=== PATIENT | female | born 1965 | race Caucasian/White ===

== ENCOUNTER 2017-05-18 09:31 | Emergency (ER) | payer MEDICAID, OTHER ==
[~2017-05-18] VITALS: Ht 170.2 cm; Wt 108.2 kg
[~2017-05-18 09:31] MED LIST: DIOV80TA2 PO; HYDR10TA16 PO; TOPR25TA2 PO; XANA1TAB6 PO
[2017-05-18 09:35] VITALS: BP 197/117; PULSE 109; RESP 26; TEMP 98.9; O2SAT 97
[2017-05-18] MEDS ORDERED: DIOV80TA2 PO ×2 (09:55→15:08)
[2017-05-18] MEDS ORDERED: DEPA250T2 PO (09:55)
[2017-05-18] MEDS ORDERED: CLON0.2T PO ×2 (09:55→15:08)
[2017-05-18] MEDS ORDERED: SERO400T PO (09:55)
[2017-05-18] MEDS ORDERED: TRAZ1TAB14 PO (09:55)
[2017-05-18] MEDS ORDERED: inhaler (09:55)
[2017-05-18] MEDS ORDERED: XANA1TAB2 PO (09:55)
[2017-05-18] MEDS ORDERED: OMEP40CA2 PO (09:56)
[2017-05-18 10:00] VITALS: BP 245/136; PULSE 105; RESP 18; TEMP 98.4; O2SAT 96
[2017-05-18 10:05] VITALS: BP_SYST 228; BP_SYST 245; BP_DIAS 136; BP_DIAS 88; PULSE 100; PULSE 105; RESP 16; RESP 18; O2SAT 98; O2SAT 99
[2017-05-18] MEDS ORDERED: ASPIRIN 81 MG CHEW TAB PO ONE (10:15)
[2017-05-18] MEDS ORDERED: VALSARTAN 80 MG TAB PO ONE (10:15)
[2017-05-18] MEDS ORDERED: cloNIDine HCL 0.2 MG TAB PO ONE (10:15)
[2017-05-18] MEDS ORDERED: SODIUM CHLORIDE 0.9% FLUSH 10 ML FLUSH IVF PRN (10:15)
[2017-05-18] MEDS ORDERED: ALPRAZolam 1 MG TAB PO ONE (10:15)
[2017-05-18 10:51] LABS: AUTOMATED NEUTROPHIL # 7.1 TH/MM3 (1.8-7.7); BASOPHIL # 0.1 TH/MM3 (0-0.2); BASOPHIL % 0.8 % (0.0-2.0); EOSINOPHIL # 0.1 TH/MM3 (0-0.4); EOSINOPHIL % 1.3 % (0.0-4.0); HEMATOCRIT 44.2 % (35.0-46.0); HEMO FLAGS DIFF FINAL; LYMPH % 19.5 % (9.0-44.0); LYMPHOCYTE # 1.9 TH/MM3 (1.0-4.8); MEAN CELL VOLUME 88.7 FL (80.0-100.0); MEAN CORPUSCULAR HGB CONC 32.7 % (32.0-36.0); MONO % 6.5 % (0.0-8.0); NEUT % 71.9 % (16.0-70.0); PLATELET COUNT 218 TH/MM3 (150-450); RED BLOOD COUNT 4.98 MIL/MM3 (4.00-5.30); RED CELL DISTRIBUTION WIDTH 16.4 % (11.6-17.2); WHITE BLOOD COUNT 9.9 TH/MM3 (4.0-11.0)
[2017-05-18 11:03] LABS: APTT (PATIENT) 26.5 SEC (24.3-30.1); INTERNATIONAL NORMALIZED RATIO 0.9 RATIO; PROTHROMBIN TIME - PATIENT 10.4 SEC (9.8-11.6)
[2017-05-18 11:22] LABS: ALKALINE PHOSPHATASE 87 U/L (45-117); ALT (GPT) 40 U/L (10-53); ANION GAP 10 MEQ/L (5-15); AST (GOT) 25 U/L (15-37); BICARBONATE 22.2 MEQ/L (21.0-32.0); BLOOD UREA NITROGEN 8 MG/DL (7-18); CHLORIDE 106 MEQ/L (98-107); GLOMERULAR FILTRATION RATE 74 ML/MIN (>89); POTASSIUM 3.7 MEQ/L (3.5-5.1); SODIUM (NA) 138 MEQ/L (136-145); TOTAL BILIRUBIN ADULT 0.3 MG/DL (0.2-1.0)
--- NOTE | 2017-05-18 11:23 | RADRPT ---
EXAM DATE/TIME: 05/18/2017 10:35 [facility] COMPARISON: CHEST PA & LAT, September 01, 2011, 13:51. INDICATIONS : Short of breath, chest pain earlier today but not at present, smoker MEDICAL HISTORY : Chronic obstructive pulmonary disease. SURGICAL HISTORY : None. ENCOUNTER: Initial ACUITY: 1 day PAIN SCORE: 0/10 LOCATION: Bilateral chest FINDINGS: A single view of the chest demonstrates the lungs to be symmetrically aerated without evidence of mas s, infiltrate or effusion. The cardiomediastinal contours are unremarkable. Osseous structures are intact. Old right posterior third and fourth rib fractures. CONCLUSION: No acute disease. Joel Diaz Jr., MD on May 18, 2017 at 11:21 Board Certified Radiologist. This report was verified electronically.
[2017-05-18 11:31] LABS: CREATINE KINASE 76 U/L (26-192)
[2017-05-18 13:00] VITALS: BP 135/80
--- NOTE | 2017-05-18 15:08 | PD ---
HPI Chief Complaint: Hypertension Time Seen by Provider: 09:54 Travel History International Travel<30 days: No Contact w/Intl Traveler<30days: No Traveled to known affect area: No History of Present Illness HPI Patient is a 52 year old female who comes in because [facility] told her her blood pressure was too high. She says she was admitted at an outside facility for psychiatric reasons a few weeks ago and she says they stopped all of her medications. She is trying to get restarted on her medications, and was told to go to [facility]. She has been out of her blood pressure medications for 3 weeks. She says when they told her she needed to come to the hospital, she started to have pain to the middle of her chest. She also became very anxious. She says she was feeling in her normal state of health prior to the event. She does report some headache, which she says is typical for her when her blood pressure is elevated. She says she does have her psychiatric medications. PFSH Past Medical History Bipolar Disorder: Yes Depression: Yes Cardiovascular Problems: Yes (HTN) COPD: Yes GERD: Yes Hypertension: Yes Musculoskeletal: Yes (HERNIATED DISCS L4,5) Respiratory: Yes (COPD) Migraines: Yes Tetanus Vaccination: < 5 Years Influenza Vaccination: No ?: Not Tubal Ligation: Yes Past Surgical History Surgical History: No Previous Surgery Social History Alcohol Use: No Tobacco Use: Yes Substance Use: No Allergies-Medications (Allergen,Severity, Reaction): Coded Allergies: sertraline (Verified Allergy, Intermediate, Numbness, 05/18/17) pt states she has a "white out" and passes out Reported Meds & Prescriptions Reported Meds & Active Scripts Active Reported Omeprazole 40 Mg Cap 40 Mg PO DAILY [inhaler] Clonidine (Clonidine HCl) 0.2 Mg Tab 0.2 Mg PO BID Depakote DR (Divalproex Sodium) 250 Mg Tabdr 250 Mg PO BID Trazodone (Trazodone HCl) 150 Mg Tablet 150 Mg PO HS Seroquel (Quetiapine Fumarate) 400 Mg Tab 400 Mg PO HS Diovan Hct (Valsartan-Hydrochlorothiazide) 80-12.5 Mg Tab 1 Tab PO DAILY Xanax (Alprazolam) 1 Mg Tab 1 Mg PO Q8H PRN Review of Systems Except as stated in HPI: all other systems reviewed are Neg General / Constitutional: No: Fever, Chills HENT: Positive: Headaches, No: Lightheadedness Cardiovascular: Positive: Chest Pain or Discomfort Respiratory: Positive: Shortness of Breath Gastrointestinal: No: Nausea, Vomiting Musculoskeletal: No: Myalgias, Edema Skin: No Rash, No Change in Pigmentation Neurologic: No: Weakness, Dizziness Physical Exam Narrative GENERAL: Awake and alert, anxious, hyperventilating. SKIN: Focused skin assessment warm/dry. HEAD: Atraumatic. Normocephalic. EYES: Pupils equal and round. No scleral icterus. ENT: Mucous membranes pink and moist. NECK: Trachea midline. No JVD. CARDIOVASCULAR: Regular rate and rhythm. No murmur appreciated. RESPIRATORY: Hyperventilating. Clear to auscultation. Breath sounds equal bilaterally. GASTROINTESTINAL: Abdomen soft, non-tender, nondistended. MUSCULOSKELETAL: No obvious deformities. No clubbing. No cyanosis. No edema. NEUROLOGICAL: Awake and alert. No obvious cranial nerve deficits. Motor grossly within normal limits. Normal speech. PSYCHIATRIC: Appropriate mood and affect; insight and judgment normal. Data Data Last Documented VS Vital Signs Date Time Temp Pulse Resp B/P (MAP) Pulse Ox O2 Delivery O2 Flow Rate FiO2 05/18/17 10:05 100 16 228/88 (134) 98 Nasal Cannula 2.00 05/18/17 10:00 98.4 Orders Orders Electrocardiogram (05/18/17 10:03) Ckmb (Isoenzyme) Profile (05/18/17 10:03) Complete Blood Count With Diff (05/18/17 10:03) Comprehensive Metabolic Panel (05/18/17 10:03) Prothrombin Time / Inr (Pt) (05/18/17 10:03) Act Partial Throm Time (Ptt) (05/18/17 10:03) Troponin I (05/18/17 10:03) Chest, Single Ap (05/18/17 10:03) Ecg Monitoring (05/18/17 10:03) Bilateral Bp Monitoring (05/18/17 10:03) Iv Access Insert/Monitor (05/18/17 10:03) Oximetry (05/18/17 10:03) Oxygen Administration (05/18/17 10:03) Aspirin Chew (Aspirin Chew) (05/18/17 10:15) Sodium Chloride 0.9% Flush (Ns Flush) (05/18/17 10:15) Valsartan (Diovan) (05/18/17 10:15) Clonidine (Catapres) (05/18/17 10:15) Alprazolam (Xanax) (05/18/17 10:15) Troponin I (05/18/17 14:06) Labs Laboratory Tests Test 05/18/17 10:20 05/18/17 14:10 White Blood Count 9.9 TH/MM3 Red Blood Count 4.98 MIL/MM3 Hemoglobin 14.5 GM/DL Hematocrit 44.2 % Mean Corpuscular Volume 88.7 FL Mean Corpuscular Hemoglobin 29.0 PG Mean Corpuscular Hemoglobin Concent 32.7 % Red Cell Distribution Width 16.4 % Platelet Count 218 TH/MM3 Mean Platelet Volume 10.1 FL Neutrophils (%) (Auto) 71.9 % Lymphocytes (%) (Auto) 19.5 % Monocytes (%) (Auto) 6.5 % Eosinophils (%) (Auto) 1.3 % Basophils (%) (Auto) 0.8 % Neutrophils # (Auto) 7.1 TH/MM3 Lymphocytes # (Auto) 1.9 TH/MM3 Monocytes # (Auto) 0.6 TH/MM3 Eosinophils # (Auto) 0.1 TH/MM3 Basophils # (Auto) 0.1 TH/MM3 CBC Comment DIFF FINAL Differential Comment Prothrombin Time 10.4 SEC Prothromb Time International Ratio 0.9 RATIO Activated Partial Thromboplast Time 26.5 SEC Blood Urea Nitrogen 8 MG/DL Creatinine 0.81 MG/DL Random Glucose 81 MG/DL Total Protein 7.5 GM/DL Albumin 3.7 GM/DL Calcium Level 9.6 MG/DL Alkaline Phosphatase 87 U/L Aspartate Amino Transf (AST/SGOT) 25 U/L Alanine Aminotransferase (ALT/SGPT) 40 U/L Total Bilirubin 0.3 MG/DL Sodium Level 138 MEQ/L Potassium Level 3.7 MEQ/L Chloride Level 106 MEQ/L Carbon Dioxide Level 22.2 MEQ/L Anion Gap 10 MEQ/L Estimat Glomerular Filtration Rate 74 ML/MIN Total Creatine Kinase 76 U/L Troponin I LESS THAN 0.02 NG/ML MDM Medical Decision Making Medical Screen Exam Complete: Yes Emergency Medical Condition: Yes Medical Record Reviewed: Yes Interpretation(s) ECG shows NSR at 98, no ST elevation or depression, normal intervals. Differential Diagnosis ACS vs NSTEMI vs STEMI vs chronic hypertension Narrative Course Patient is a 52 year old female who comes in because of high blood pressure. She is very anxious and hyperventilating. She does report chest pain when being told she needed to come to the hospital. IV established, labs sent. Given her blood pressure medication and Xanax. Her blood pressure improved. First troponin was negative. I advised patient she should stay in the chest pain center for further management, however, she says that she needs to go home and take care of her Autistic son. She agreed to stay for a second troponin. Second troponin was negative. Patient advised I cannot be 100% sure she is not having a heart attack at this time. She says she understands, but she needs to go home. Patient given prescriptions for her blood pressure medication and advised to follow up with her doctors. Advised to return as needed for any worsening symptoms. Diagnosis Primary Impression: High blood pressure Qualified Codes: I10 - Essential (primary) hypertension Additional Impression: Chest pain Qualified Codes: R07.9 - Chest pain, unspecified Patient Instructions: Chest Pain (ED), Chronic Hypertension (ED), General Instructions Additional Instructions: Follow up with your doctors. Take all of your blood pressure medications. Return to the ED as needed for any worsening symptoms. Scripts Valsartan-Hydrochlorothiazide (Diovan Hct) 80-12.5 Mg Tab 1 TAB PO DAILY for Blood Pressure Management, #30 TAB 0 Refills Prov: Preethi Morales MD 05/18/17 Clonidine (Clonidine) 0.2 Mg Tab 0.2 MG PO BID for Blood Pressure Management, #60 TAB 0 Refills Prov: Preethi Morales MD 05/18/17 Disposition: 01 DISCHARGE HOME Condition: Stable Preethi Morales MD May 18, 2017 15:08
[2017-05-18 15:13] VITALS: BP 130/80
--- NOTE | 2017-05-18 16:17 | EKG ---
Date Performed: 05/18/2017 Time Performed: 10:17:27 PTAGE: 52 years EKG: Sinus rhythm WITH OCCASIONAL SUPRAVENTRICULAR PREMATURE COMPLEXES POSSIBLE LEFT ATRIAL ENLARGEMENT NONSPECIFIC ST & T-WAVE ABNORMALITY Compared to prior tracing no significant change BORDERLINE ECG PREVIOUS TRACING : 01/23/2010 21.22 DOCTOR: Darnell Garrido Interpretating Date/Time 05/18/2017 16:15:23
== END 2017-05-18 16:06 | disposition home or self-care (01) ==
LOC: NEPC 09:31
DX: I10 Essential (primary) hypertension (principal); R07.9 Chest pain, unspecified; R51 Headache; R06.02 Shortness of breath; R94.31 Abnormal electrocardiogram [ECG] [EKG]; F31.9 Bipolar disorder, unspecified; F32.9 Major depressive disorder, single episode, unspecified; J44.9 Chronic obstructive pulmonary disease, unspecified; Z72.0 Tobacco use
CPT/HCPCS: 71010; 80053; 82550; 84484; 85025; 85610; 85730; 93005; 99285